=== PATIENT | male | born 1930 ===

== ENCOUNTER → 2017-04-22 09:32 | Day surgery (SDC) | payer MEDICARE, BC ==
--- NOTE | 2017-04-18 21:27 | HP ---
CC: Dr. Bulmaro Fried; Dr. Ganesh Ling* ADMITTING HISTORY AND PHYSICAL: DATE OF ADMISSION: 04/22/17 ADMITTING DIAGNOSES: 1. Microscopic hematuria. 2. Left renal calculus. PLANNED PROCEDURE: Shock wave lithotripsy, left renal calculus, possible left stent insertion. SURGEON: Dr. Ling. HISTORY OF PRESENT ILLNESS: Cristopher Manrique is an 86-year-old gentleman with a history of recurrent renal calculi. He had undergone lithotripsy in 2015 for a left-sided calculus. A followup ultrasound in September of 2016 showed no remaining calculi in the left kidney; however, further ultrasound done in March showed a new calculus in the inferior aspect of the left renal pelvis measuring 9.6 mm. He is now being brought in for the management of the same. PAST MEDICAL HISTORY: Significant for renal calculi. PAST SURGICAL HISTORY: Unremarkable. MEDICATIONS ON ADMISSION: None. ALLERGIES: No known drug allergies. SMOKING HISTORY: He is a nonsmoker. REVIEW OF SYSTEMS: He is in remarkably good health. There is no history of diabetes mellitus or any other major systemic illness. He is not on any chronic medications. PHYSICAL EXAMINATION GENERAL: Reveals a healthy-appearing elderly gentleman. VITAL SIGNS: Blood pressure is 120/70; pulse 80 per minute, regular; temperature 97.5; oxygen saturation 98% on room air. LUNGS: Clear bilaterally. CARDIOVASCULAR: Regular rate and rhythm. S1, S2. ABDOMEN: Soft without masses. IMPRESSION AND PLAN: An 86-year-old gentleman with approximately 9-mm calculus in the inferior aspect of the left renal pelvis. Planned procedure is shock wave lithotripsy, left renal calculus, possible left stent insertion. [id number]/[facility] #: [id number] [facility]
[~2017-04-22 09:32] MED LIST: Buffered Lidocaine 0.9% SYRIN* 5 ML/SYR SYRINGE INTRADERM ONE; Buffered Lidocaine 0.9% SYRIN* 5 ML/SYR SYRINGE ONE; Dexamethasone IV* 4 MG/ML 1 ML (4 MG) IV SLOW PU ONE; Dexamethasone IV* 4 MG/ML 1 ML (4 MG) ONE; Famotidine IV* 10 MG/ML 2 ML (20 mg) IV ONE; Famotidine IV* 10 MG/ML 2 ML (20 mg) ONE; Lidocaine 2% PF * 5 ML VIAL ONE; Ondansetron INJ* 2 MG/ML VIAL ONE; Phenylephrine IV* 40 MCG/ML 10 ML SYRINGE ONE; Propofol* 10 MG/ML 20 ML BTL IV PUSH ONE; cefTRIAXone(*) 2 GM ADDV.VIAL IVPB ONE; fentaNYL* 50 MCG/ML 2 ML VIAL (100 MCG VIAL) IV PRN; fentaNYL* 50 MCG/ML 2 ML VIAL (100 MCG VIAL) ONE
--- NOTE | 2017-04-22 10:34 | RAD ---
HISTORY: Renal calculi, shock wave lithotripsy COMPARISONS: April 10, 2017 VIEWS: Frontal views of the abdomen. FINDINGS: BOWEL: There is a nonspecific bowel gas pattern, with nondilated small bowel gas noted. CALCULI: Again noted is a 0.8 cm calculus overlying the left renal parenchymal shadow. BONES AND SOFT TISSUES: Degenerative changes are noted. OTHER FINDINGS: The lung bases are clear. There is no subphrenic gas. IMPRESSION: STABLE LEFT NEPHROLITHIASIS
[2017-04-22 12:51] VITALS: BP 136/76
--- NOTE | 2017-04-22 13:43 | RAD ---
HISTORY: Postop left shock wave lithotripsy COMPARISONS: April 22, 2017 at 9:55 AM VIEWS: Frontal views of the abdomen. FINDINGS: BOWEL: There is a nonspecific bowel gas pattern, with nondilated small bowel gas noted. There is a large amount of stool within the colon. CALCULI: The left renal calculus noted on the previous examination is not clearly visualized on the current examination. BONES AND SOFT TISSUES: Degenerative changes noted of the spine OTHER FINDINGS: The lung bases are clear. There is no subphrenic gas. IMPRESSION: THE LEFT RENAL CALCULUS NOTED EARLIER IS NOT WELL-VISUALIZED ON THE CURRENT EXAMINATION.
--- NOTE | 2017-04-23 03:02 | OP ---
CC: Dr. Bulmaro Fried; Dr. Ganesh Ling* OPERATIVE REPORT: DATE OF OPERATION: 04/22/17 - SDS DATE OF : 34 SURGEON: Ganesh Ling MD ANESTHESIOLOGIST: Dr. Resendiz. ANESTHESIA: General. PRE-OP DIAGNOSIS: Left renal calculus. POST-OP DIAGNOSIS: Left renal calculus. OPERATIVE PROCEDURE: Shockwave lithotripsy of left renal calculus. INDICATIONS: Cristopher Manrique is an 86-year-old gentleman with a history of recurrent renal calculi. He was recently evaluated and noted to have a 9.3 cm calculus in the left renal pelvis. He is now being brought in for shockwave lithotripsy and possible left stent insertion. COMPLICATIONS: None. POSTOPERATIVE CONDITION: Stable. DESCRIPTION OF PROCEDURE: After induction of general anesthesia, the patient was placed on the lithotripsy table in supine position. The calculus in the left kidney was localized using fluoroscopy. Shockwave lithotripsy was commenced at a rate of 60 shocks per minute. After the initial 300 shocks, there was a pause in lithotripsy for several minutes in an effort to minimize any potential trauma to the kidney. Lithotripsy was then resumed. Periodic imaging revealed good localization. The stone was noted to be fairly dense and hard and a total of 2800 shocks were administered. I elected not to proceed with stent insertion as the stone did appear to be fragmented at the end of the procedure, although it is certainly possible that he could develop obstructing fragments, which may require delayed stent insertion. I had discussed this preoperatively with him and he had wanted to try and avoid stent insertion at the present time if at all possible. The patient tolerated the procedure satisfactorily and was transferred back to the recovery area in stable condition. [id number]/[facility] #: [id number] MTDD
== END | disposition home or self-care (01) ==
LOC: OR 09:32
PROVIDERS: ATTEND Urology
DX: N20.0 Calculus of kidney (principal)
CPT/HCPCS: 74000; J0696; J1100; J2405; J2704; J3010

== ENCOUNTER 2017-11-28 18:25 | Emergency (ER) | payer MEDICARE, BC ==
[2017-11-28 18:53] VITALS: BP 119/66
--- NOTE | 2017-11-28 19:10 | UC ---
Eye Complaint HPI - HPI Summary HPI Summary: 87 yo male presents with left eye injury. He tells me that about 1 hour [employer] he was cutting his grass and a twig poked him in the left eye. Had immediate pain and soon after started to develop blood in the white parts of his eye. Mild- moderate pain rated at a 5. Takes a daily aspirin. No vision changes. - History of Current Complaint Chief Complaint: UCEye Stated Complaint: EYE COMPLAINT Time Seen by Provider: 11/28/17 19:10 Hx Obtained From: Patient Onset/Duration: Sudden Onset Timing: Constant Severity Initially: Moderate Severity Currently: Moderate Pain Intensity: 5 Pain Scale Used: 0-10 Numeric Location of Injury: Globe, Sclera Character: Dull Aggravating Factor(s): Nothing Alleviating Factor(s): Nothing - Allergies/Home Medications Allergies/Adverse Reactions: Allergies Allergy/AdvReac Type Severity Reaction Status Date / Time No Known Allergies Allergy Verified 11/28/17 18:53 Home Medications: Home Medications Aspirin [Aspirin Childrens 81 MG] 81 mg PO DAILY 11/28/17 [History Confirmed ] PMH/Surg Hx/FS Hx/Imm Hx - Additional Past Medical History Additional PMH: None Previously Healthy: Yes - Surgical History Surgical History: Yes Surgery Procedure, Year, and Place: LYMPH NODE DISECTION, 1973. LEFT STENT [facility] [place] - Family History Known Family History: Positive: None - Social History Occupation: Retired Lives: With Family Alcohol Use: Rare Alcohol Amount: 1 PER WEEK Substance Use Type: None Smoking Status (MU): Never Smoked Tobacco Have You Smoked in the Last Year: No Review of Systems Constitutional: Negative Skin: Negative Eyes: Other - Hematoma left eye ENT: Negative Respiratory: Negative Cardiovascular: Negative Neurological: Negative Psychological: Negative All Other Systems Reviewed And Are Negative: Yes Physical Exam - Summary Physical Exam Summary: GENERAL: NAD. WDWN. No pain distress. SKIN: No streaking, bleeding, or drainage. HEENT: Head: AT/NC Eyes: EOMI. PERRLA. LEFT eye: Moderate to severe subconjunctival hemorrhage. No white sclera appreciated. No hyphema. No drainage. NECK: Supple. Nontender. No lymphadenopathy. CHEST: No accessory muscle use. Breathing comfortably and in no distress. CV: RRR. Without m/r/g. NEURO: Alert. CN II-XII grossly intact. PSYCH: Age appropriate behavior. Triage Information Reviewed: Yes Vital Signs: Initial Vital Signs Temp 97.8 F 11/28/17 18:49 Pulse 62 11/28/17 18:49 Resp 20 11/28/17 18:49 BP 119/66 11/28/17 18:49 Pulse Ox 98 11/28/17 18:49 Eye Complaint Course/Dx - Course Course Of Treatment: Pt is a pt of Dr. Freitas. I called his office and they were still open this evening and will see the pt now. - Differential Dx/Diagnosis Provider Diagnoses: Left eye trauma Discharge - Sign-Out/Discharge Documenting (check all that apply): Discharge/Admit/Transfer - Discharge Plan Condition: Stable Disposition: HOME Referrals: Bulmaro Fried DO [Primary Care Provider] - Additional Instructions: If you develop a fever, shortness of breath, chest pain, new or worsening symptoms - please call your PCP or go to the ED. Dr. Freitas will see you now. Please go there. - Billing Disposition and Condition Condition: STABLE Disposition: HOME
[2017-11-28] MEDS ORDERED: Fluorescein Sod TOPICAL 0.6* 0.6 MG TEST OPHTHALMIC ONE (19:26)
== END 2017-11-28 19:35 | disposition home or self-care (01) ==
LOC: UCEAST 18:25
DX: S05.92XA Unspecified injury of left eye and orbit, initial encounter (principal); W22.8XXA Striking against or struck by other objects, initial encounter; Y93.H2 Activity, gardening and landscaping; Y92.017 Garden or yard in single-family (private) house as the place of occurrence of the external cause; Z79.82 Long term (current) use of aspirin
CPT/HCPCS: 99201; G0463

== ENCOUNTER 2018-06-14 15:31 | Observation (INO) | payer MEDICARE, BC, OTHER ==
[2018-06-14] MEDS ORDERED: NS 0.9% 1000 ML* 1,000 ML IV ONE (15:50)
[2018-06-14 16:06] LABS: ABS Basophils 0.1 10^3/ul (0-0.2); ABS Eosinophils 0.2 10^3/ul (0-0.6); ABS Lymphocytes 1.7 10^3/ul (1.0-4.8); ABS Monocytes 0.7 10^3/ul (0-0.8); ABS Neutrophils 4.7 10^3/ul (1.5-7.7); ABS Nucleated RBC 0 10^3/ul; Eosinophil % 2.5 %; Hematocrit 41 % (42-52); Hemoglobin 13.7 g/dl (14.0-18.0); Mean Corpuscular HGB Conc 34 g/dl (31-36); Mean Corpuscular Hemoglobin 32 pg (27-31); Mean Corpuscular Volume 95 fL (80-94); Nucleated Red Blood Cells % 0; Platelet Count 199 10^3/ul (150-450); Red Blood Count 4.27 10^6/ul (4.00-5.40); Red Cell Distribution Width 12 % (10.5-15); White Blood Count 7.3 10^3/ul (3.5-10.8)
[2018-06-14 16:23] LABS: ALT 17 U/L (7-52); AST 20 U/L (13-39); Albumin 4.2 g/dL (3.2-5.2); Albumin/Globulin Ratio 1.9 (1-3); Alkaline Phosphatase 84 U/L (34-104); Anion Gap 6 mmol/L (2-11); BUN/Creatinine Ratio 15.4 (8-20); Blood Urea Nitrogen 18 mg/dL (6-24); C Reactive Protein 1.11 mg/L (<8.01); CO2 Carbon Dioxide 27 mmol/L (22-32); Calcium 9.4 mg/dL (8.6-10.3); Chloride 106 mmol/L (101-111); EGFR African American 71.7 (>60); EGFR Non-African American 59.2 (>60); Globulin 2.2 g/dL (2-4); Glucose 185 mg/dL (70-100); Potassium 3.9 mmol/L (3.5-5.0); Sodium 139 mmol/L (135-145); Total Protein 6.4 g/dL (6.4-8.9)
[2018-06-14 16:24] LABS: Troponin I 0.01 ng/mL (<0.04)
[2018-06-14 16:45] LABS: Alcohol < 10 mg/dL (<10)
[2018-06-14 17:08] LABS: TSH (Thyroid Stimulating Horm) 2.12 mcIU/mL (0.34-5.60)
--- NOTE | 2018-06-14 17:10 | ED ---
Neurological HPI - HPI Summary HPI Summary: A 87 y/o male accompanied by his brought in by ambulance presents to the ED c/o dizziness. Currently, the patient feels back to baseline and has no complaints. Patient has no pain whatsoever and feels perfectly fine. In the ED room, the patient has a pulse of 73 BPM, O2 saturation of 96%, and blood pressure of 110/62. According to the patient, he was singing [employer] when he started to feel dizzy. At that point, he had only been singing VTM for about an hour starting at 1415, however, at approximately 1515, he felt hot , diaphoretic, nauseous, and became dizzy. He noted that the dizziness passed off after about 15-20 minutes. He wasn't going to come seek medical attention, however, his friends and family convinced him to do so. He characterized the dizziness as "foggy" (not room-spinning) and nauseous, as if he felt like he was going to faint and pass out. He knew that he needed to sit down. He put his head in between his legs, but he still felt dizzy so he laid down and all of his symptoms went away. He denies any SOB, hematuria, CP or chest discomfort, weakness, headache, leg pain, abdominal pain, palpitations or irregular beats. He noted that he stopped singing as soon as he felt dizzy. As per , the patient was "white as a sheep", but after some time he started making jokes and was back to his normal self. She didn't notice any garbled speech and the patient didn't notice any trouble finding words. His feels that the patient is his usual self and looks good now. Pt states the he raked leaves for 2 hrs today prior to going [email or web address]. He states that he did not have chest pain during or after the raking. He also states that he rested after raking. Current medications are Aspirin 81 mg. Pt has no cardiac hx, no hx HTN or DM. States he has not had a stress test. PCP is Dr. Fried. Home Medications Medication Instructions Recorded Confirmed Type Aspirin [Aspirin Childrens 81 MG] 81 mg PO DAILY 11/28/17 11/28/17 History - History of Current Complaint Chief Complaint: EDDizziness Stated Complaint: NEAR SYNCOPE Time Seen by Provider: 06/14/18 16:12 Hx Obtained From: Patient, Family/Control Systems Technician - Onset/Duration: Sudden Onset, Started hours ago, Resolved Timing: Sudden Onset Onset Severity: Severe Current Severity: None Number of Seizures: 0 Pain Intensity: 0 Pain Scale Used: 0-10 Numeric Character: Dizzy Syncope Timin Number of Episodes: 0 Aggravating: Nothing Alleviating: Nothing Associated Signs and Symptoms: Positive: Dizziness, Nausea/Vomiting - Nausea, Diaphoresis TPA Considered: No Related Hx: ASA - Allergy/Home Medications Allergies/Adverse Reactions: Allergies Allergy/AdvReac Type Severity Reaction Status Date / Time No Known Allergies Allergy Verified 11/28/17 18:53 PMH/Surg Hx/FS Hx/Imm Hx Previously Healthy: No Endocrine/Hematology History: Reports: Other Endocrine/Hematological Disorders - Sarcoidosis Cardiovascular History: Denies: Other Cardiovascular Problems/Disorders Respiratory History: Reports: Other Respiratory Problems/Disorders - HX SARCOIDOSIS-1973, NO SYMPTOMS NOW GI History: Reports: Hx Jaundice - YELLOW JAUNDICE AT AGE 20 Denies: Other GI Disorders History: Reports: Hx Kidney Stones - s/p lithotripsy Sensory History: Reports: Hx Cataracts - LEFT EYE, Hx Contacts or Glasses - READING Denies: Hx Hearing Aid Opthamlomology History: Reports: Hx Cataracts - LEFT EYE, Hx Contacts or Glasses - READING Neurological History: Reports: Hx Migraine - INFREQUENT-TREATS WITH REST - Surgical History Surgery Procedure, Year, and Place: LYMPH NODE DISSECTION, 1973. LEFT renal STENT 01/13 [facility] [place]. Lithotripsy Hx Anesthesia Reactions: No Infectious Disease History: No Infectious Disease History: Denies: Traveled Outside the [place] in Last 30 Days - Family History Known Family History: Positive: Other - FHx of CVA and SD. - Social History Lives: With Family Alcohol Use: Rare Alcohol Amount: 1 PER WEEK Substance Use Type: Reports: None Smoking Status (MU): Never Smoked Tobacco Have You Smoked in the Last Year: No Review of Systems Positive: Skin Diaphoresis. Negative: Fever Cardiovascular: Other - NEGATIVE: IRREGULAR BEATS Negative: Palpitations, Chest Pain Negative: Shortness Of Breath Positive: Nausea Negative: hematuria Positive: Other - NEGATIVE: LEG PAIN Skin: Negative Neurological: Other - POSITIVE: Dizziness Negative: Headache, Weakness, Slurred Speech Psychological: Normal All Other Systems Reviewed And Are Negative: Yes Physical Exam - Summary Physical Exam Summary: Appearance: Well-appearing, no pain distress, well-nourished, appears younger than stated age, occasional PAC's and unifocal PVC's noted on monitor Skin: Warm, color reflects adequate perfusion, dry Head: Normal Head/Face inspection, atraumatic Eyes: Conjunctiva clear, PERRL, EOMI ENT: Normal inspection Neck: Supple, no nodes, no JVD, no bruits Respiratory: Lungs clear, normal breath sounds, no respiratory distress Cardio: RRR, No murmur, pulses normal, brisk capillary refill Abdomen: Soft, nontender Bowel sounds: Present Musculoskeletal: Strength Intact/ROM intact, no calf tenderness, no edema. Psychological: Normal Neuro: Alert O x 3, CN II-XII intact, muscle tone normal, no focal deficit, Motor 5/5, Sensation intact, nl FTN and heel to messina Triage Information Reviewed: Yes Vital Signs On Initial Exam: Initial Vitals Temp Pulse Resp BP Pulse Ox 97.4 F 65 16 125/57 98 06/14/18 15:34 06/14/18 15:34 06/14/18 15:34 06/14/18 15:34 06/14/18 15:34 Vital Signs Reviewed: Yes - Timur Coma Scale Best Eye Response: 4 - Spontaneous Best Motor Response: 6 - Obeys Commands Best Verbal Response: 5 - Oriented Coma Scale Total: 15 Diagnostics - Vital Signs Vital Signs Temp Pulse Resp BP Pulse Ox 06/14/18 16:05 70 21 110/62 98 06/14/18 16:00 63 17 98 06/14/18 15:34 97.4 F 65 16 125/57 98 - Laboratory Lab Results: Lab Results 06/14/18 06/14/18 06/14/18 Range/Units 15:58 15:58 15:58 WBC 7.3 (3.5-10.8) 10^3/ul RBC 4.27 (4.00-5.40) 10^6/ul Hgb 13.7 L (14.0-18.0) g/dl Hct 41 L (42-52) % MCV 95 H (80-94) fL MCH 32 H (27-31) pg MCHC 34 (31-36) g/dl RDW 12 (10.5-15) % Plt Count 199 (150-450) 10^3/ul MPV 8.0 (7.4-10.4) fL Neut % (Auto) 64.1 % Lymph % (Auto) 23.0 % Alger % (Auto) 9.7 % Eos % (Auto) 2.5 % Baso % (Auto) 0.7 % Absolute Neuts (auto) 4.7 (1.5-7.7) 10^3/ul Absolute Lymphs (auto) 1.7 (1.0-4.8) 10^3/ul Absolute Monos (auto) 0.7 (0-0.8) 10^3/ul Absolute Eos (auto) 0.2 (0-0.6) 10^3/ul Absolute Basos (auto) 0.1 (0-0.2) 10^3/ul Absolute Nucleated RBC 0 10^3/ul Nucleated RBC % 0 Sodium 139 (135-145) mmol/L Potassium 3.9 (3.5-5.0) mmol/L Chloride 106 (101-111) mmol/L Carbon Dioxide 27 (22-32) mmol/L Anion Gap 6 (2-11) mmol/L BUN 18 (6-24) mg/dL Creatinine 1.17 (0.67-1.17) mg/dL Est GFR ( Amer) 71.7 (>60) Est GFR (Non-Af Amer) 59.2 (>60) BUN/Creatinine Ratio 15.4 (8-20) Glucose 185 H (70-100) mg/dL Lactic Acid 1.9 (0.5-2.0) mmol/L Calcium 9.4 (8.6-10.3) mg/dL Magnesium 2.0 (1.9-2.7) mg/dL Total Bilirubin 0.60 (0.2-1.0) mg/dL AST 20 (13-39) U/L ALT 17 (7-52) U/L Alkaline Phosphatase 84 (34-104) U/L Troponin I 0.01 (<0.04) ng/mL C-Reactive Protein 1.11 (<8.01) mg/L Total Protein 6.4 (6.4-8.9) g/dL Albumin 4.2 (3.2-5.2) g/dL Globulin 2.2 (2-4) g/dL Albumin/Globulin Ratio 1.9 (1-3) TSH Pending Serum Alcohol < 10 (<10) mg/dL Result Diagrams: 06/14/18 15:58 06/14/18 15:58 Lab Statement: Any lab studies that have been ordered have been reviewed, and results considered in the medical decision making process. - CT BRAIN CT CT Interpretation Completed By: Radiologist Summary of CT Findings: NO ACUTE INTRACRANIAL PATHOLOGY. ED PHYSICIAN REVIEWED THIS RADIOLOGY REPORT. - EKG 1600 Cardiac Rate: NL - 70 BPM EKG Rhythm: Sinus Rhythm - [address] Segment: Non-Specific EKG Comparison: Other - No prior to compare. Discussed EKG with Dr. Astorga who stated that it is not A-fib at 1737, possible Wenkebach or blocked PAC. Summary of EKG Findings: 1st degree AV block, irregular baseline, nl IVCT, nl QTc. 1716 Cardiac Rate: NL - 71 BPM EKG Rhythm: Sinus Rhythm - [address] Segment: Non-Specific Ectopy: None EKG Comparison: No Significant Change - Compared with EKG at 1600 on 06/14/2018 - sinus rhythm. Summary of EKG Findings: 1st degree AV block, nl IVCT, nl QTc, no acute changes. NIH Scale - NIH Scale Level of Consciousness: Alert/Keenly Responsive Ask Patient the Month and His/Her Age: Both Correct Ask Pt to Open/Close Eyes and Cistern Room Operator/Release Non-Paretic Hand: Both Correctly Best Gaze (Only Horizontal Eye Movement): Normal Visual Field Testing: No Visual Loss Facial Paresis-Pt to Smile & Close Eyes or Grimace Symmetry: Normal/Symmetrical Motor Function - Right Arm: No Drift-Holds 10 Seconds Motor Function - Left Arm: No Drift-Holds 10 Seconds Motor Function - Right Leg: No Drift-Holds 10 Seconds Motor Function - Left Leg: No Drift-Holds 10 Seconds Limb Ataxia-Must be out of Proportion to Weakness Present: Absent Sensory (Use Pinprick to Test Arms/Legs/Trunk/Face): Normal Best Language (Describe Picture, Name Items): No Aphasia Dysarthria (Read Several Words): Normal Extinction and Inattention: No Abnormality Total Score: 0 Re-Evaluation - Re-Evaluation First Eval Re-Evaluation Time: 17:42 Change: Unchanged Comment: Patient has no chest pain. Patient agrees with admission. Course/Dx - Course Course Of Treatment: A 87 y/o male presents to the ED c/o dizziness. In the ED room, the patient was at baseline. The patient reported no pain or symptoms and noted that he felt normal upon presentation to the ED. Patients even noted that the patient seemed normal once in the ED. The patient was [place] with a choir, when he suddenly felt dizzy . The patient became diaphoretic and nauseous and he sat down. The symptoms lasted for about 15-20 minutes, however, they were completely resolved after rest and placing his head between his knees.. He characterized the dizziness as foggy and knowing that he needed to sit down. The patient denies any SOB, hematuria, CP or chest discomfort, weakness, headache, leg pain, abdominal pain, palpitations or irregular beats and no trouble with his speech or focal weakness. The patient s and the patient did not notice any slurred speech of any kind. Physical examination was unremarkable. A Brain CT revealed no acute intracranial pathology. An EKG revealed NSR of 70 BPM, 1st degree AV block, irregular baseline, nl IVCT, nl QTc. This EKG was discussed with foreman/pile driving and erection, Dr. Astorga , who thinks it is not A-fib. A second EKG revealed NSR of 71 BPM, 1st degree AV block, nl IVCT, nl QTc, no acute changes. Compared with EKG at 1600 on 2017 - sinus rhythm. Pt was mildly anemic. Nonfasting glucose was elevated. His troponin and d dimer were both normal. In the ED course, the patient received IV fluids. Pt's EKG was discussed with Dr. Astorga. Patient care was discussed with hospitalist, Dr. Nimo Sal, who accepts patient for admission. Patient will be admitted with a diagnosis of near syncope. Patient is agreeable with this plan. - Differential Dx Differential Diagnoses Neuro: Positive: Cerebrovascular Accident, Coronary Artery Disease, Dysrhythmia, Hemorrhage, Hypoglycemia, Hypovolemia, Metabolic Abnormality, Migraine, Pulmonary Embolism, Transient Ischemic Attack, Vasovagal Reaction - Diagnoses Provider Diagnoses: Near syncope - Physician Notifications Discussed Care Of Patient With: Artemio Astorga Time Discussed With Above Provider: 17:34 Instructed by Provider To: Other - EKG was discussed with Dr. Astorga who does not think it is A-fib. 173 - Dr. Sal accepts patient for admission. Discharge - Sign-Out/Discharge Documenting (check all that apply): Patient Departure - ADMIT - Discharge Plan Condition: Stable Disposition: ADMITTED TO [facility] - Billing Disposition and Condition Condition: STABLE Disposition: Admitted to [facility] - Attestation Statements Document Initiated by Halleye: Yes Documenting Scribe: Temo Euceda Provider For Whom Lynn is Documenting (Include Credential): Jerri Madera MD Scribe Attestation: Temo Melchor scribed for Jerri Madera MD on 06/15/18 at 0034. Scribe Documentation Reviewed: Yes Provider Attestation: The documentation as recorded by the Temo ellis accurately reflects the service I personally performed and the decisions made by , Jerri Madera MD Status of Scribe Document: Viewed
[2018-06-14] MEDS ORDERED: Acetaminophen TAB* 325 MG PO PRN (18:23)
[2018-06-14 18:48] LABS: Urine Appearance Cloudy; Urine Bilirubin Negative (Negative); Urine Blood Negative (Negative); Urine Color Yellow; Urine Glucose Negative (Negative); Urine Ketones Negative (Negative); Urine Nitrite Negative (Negative); Urine Protein Negative (Negative); Urine Specific Gravity 1.017 (1.010-1.030); Urine Urobilinogen Negative (Negative)
--- NOTE | 2018-06-14 22:10 | HP ---
CC: Dr. Bulmaro Fried * ADMISSION HISTORY AND PHYSICAL: DATE OF ADMISSION: 06/14/18 PRIMARY CARE PROVIDER: Dr. Bulmaro Fried. ATTENDING PHYSICIAN: Dr. Nimo Sal.* (DICTATED BY JING JOAQUIN NP) CHIEF COMPLAINT: Near syncope. HISTORY OF PRESENT ILLNESS: This is a very pleasant 87-year-old male patient, who was brought in by ambulance for an episode of near syncope. Per the patient 's report, he was standing and singing in a choir for approximately 45 minutes. 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 However, approximately 45 minutes into his choral recital, the patient felt a little sweaty and dizzy and had to sit down. He said the feeling passed in approximately 20 minutes and he was his usual self after the episode. The patient reported he had a little bit of nausea and was concerned that he would pass out; however, once he sat down, he was okay. The patient denied any other accompanying symptoms. He is not short of breath. No chest pain. No fevers or chills. No abdominal pain, no nausea, no vomiting. No urinary complaints. No arthralgias or myalgias and no further constitutional complaints. PAST MEDICAL HISTORY: The patient has no past medical history. PAST SURGICAL HISTORY: He had dissection of a lymph node in 1973 and lithotripsy in the past. MEDICATIONS AT HOME: Include only baby aspirin once daily. FAMILY HISTORY: Bother mother and father of cerebrovascular accident. SOCIAL HISTORY: The patient does not smoke, does not drink alcohol, and denies any illicit drug use. His , Dianna, is his healthcare proxy, who was also available the bedside. REVIEW OF SYSTEMS: A 10-point review of systems is otherwise negative except as noted in the HPI above. PHYSICAL EXAMINATION GENERAL: The patient is a very well appearing, appears to be younger than his stated age white male patient. VITAL SIGNS: Blood pressure 117/64, heart rate 73, respiratory rate 20, O2 saturation is 96%, temperature is 97.4. HEENT: The patient is atraumatic, normocephalic. PERRLA with nonicteric sclerae. Oral mucosa is moist. Tongue is midline. NECK: Supple, nontender. No thyromegaly appreciated and no carotid bruits auscultated. LUNGS: Clear to auscultation with no wheezing, rhonchi, or rales. CARDIOVASCULAR: S1, S2 present. No murmurs, gallops, or rubs noted. Rate and rhythm are regular. ABDOMEN: Soft, nontender, and nondistended. Positive bowel sounds in all 4 quadrants. : Deferred. MUSCULOSKELETAL: There is no clubbing, no cyanosis, no edema. He has +2 distal pulses palpable, full range of motion. Gross motor and sensation are intact. NEUROLOGIC: Grossly intact with no focal deficits. PSYCHIATRIC: He is very cooperative and appropriate. DIAGNOSTIC STUDIES/LAB DATA: WBCs 7.3, RBCs 4.27, hemoglobin 13.7, hematocrit 41, platelets 199. Sodium 139, potassium 3.9, chloride 106, CO2 27, BUN 18, creatinine 1.17, GFR is 59.2, glucose 185, lactic acid 1.9, calcium 9.4, magnesium 2.0. Bilirubin 0.60, AST 20, ALT 17, alk phos 84. Troponin is negative at 0.01. CRP is negative at 0.11. Total protein 16.4, albumin 4.2, globulin 2.2. TSH is 2.12. Serum alcohol on toxicology screen is negative. D- dimer is negative at less than 200. Imaging: CAT scan of the brain shows no acute intracranial pathology. EKG shows regular sinus rhythm with no acute ST-segment changes. IMPRESSION: This is an 87-year-old male patient with no significant medical history that reported to the emergency department for evaluation after feeling like a near syncopal episode after standing and singing for 45 minutes. PLAN: The patient is going to be admitted to observation service for near syncope. At this point, the patient has received a liter of IV fluids in the emergency department. Orthostatic vital signs are pending. Vital signs are stable. His laboratories are stable. I suspect the event was secondary to prolonged standing. The patient states he thinks his knees were locked and he was singing rather and possibly also the room was very very warm and he was sweaty and warm at the same time. Likely, this is not an acute pathologic episode. In either case, we will hold the patient in observation tonight. He can have his baby aspirin in the morning. DIET: Regular as tolerated. ACTIVITY: Out of bed as tolerated. DVT prophylaxis: The patient is alert and ambulatory and even though he is of advanced age, he has absolutely no comorbid conditions and is normally ambulatory. We will encourage ambulation. He does not require chemoprophylaxis for DVT. The rest of the patient's course will be determined by further diagnostics, laboratories, and any other input from other providers as warranted during this admission. TIME SPENT: Approximately 60 minutes interviewing the patient, reviewing the chart, and determining the plan of care. Dr. Sal has reviewed the case as well and is in agreement with this admission plan of care. JING JOAQUIN NP [id number]/[facility] #: [id number] BETHANY
[2018-06-14] MEDS ORDERED: Melatonin 3 MG TAB PO ONE (23:05)
[2018-06-15] MEDS: Aspirin 81 mg CHEW TAB* 81 MG TAB.CHEW PO SCH (08:40)
--- NOTE | 2018-06-15 13:51 | PN ---
Subjective Date of Service: 06/15/18 Interval History: HOSPITALIST PROGRESS NOTE Patient seen and examined at bedside. Care reviewed and d/w Santy Tristan RN. He feels well today and is anxious for discharge as he has many arrangements to make for his upcoming trip to [place]. Family History: Unchanged from Admission Social History: Unchanged from Admission Past Medical History: Unchanged from Admission Objective Active Medications: Acetaminophen (Tylenol Tab*) 650 mg PO Q4H PRN PRN Reason: FEVER/PAIN Aspirin (Aspirin 81 Mg Chew Tab*) 81 mg PO DAILY CATHLEEN Last Admin: 06/15/18 08:40 Dose: 81 mg Vital Signs - 8 hr 06/15/18 06/15/18 06/15/18 07:28 08:00 12:14 Temperature 97.8 F 98.5 F Pulse Rate 65 66 Respiratory 16 16 16 Rate Blood Pressure 120/57 122/61 (mmHg) O2 Sat by Pulse 97 95 Oximetry Oxygen Devices in Use Now: None Appearance: Pleasant erlderly gentleman lying in bed in NAD. Eyes: No Scleral Icterus Ears/Nose/Mouth/Throat: Mucous Membranes Moist Neck: Trachea Midline Respiratory: Symmetrical Chest Expansion and Respiratory Effort, Clear to Auscultation Cardiovascular: RRR - Normal S1 and S2 Neurological: Alert and Oriented x 3, NL Muscle Strength and Tone Result Diagrams: 06/14/18 15:58 06/14/18 15:58 Assess/Plan/Problems-Billing Assessment: Mr Manrique is an 87yo M with NS PMH who presented to ED after a near syncopal episode. - Patient Problems (1) Near syncope Comment: - There was concern for some HB on admission as initial EKG had a pause. - D/w Cardiology - recommended echo and stress test. - Cardio consult requested. - Continue to monitor on Telemetry. (2) DVT prophylaxis Comment: - SCDs. (3) Full code status Status and Disposition: OBV
[2018-06-15 14:34] LABS: Folate > 20.00 ng/mL (>3.99)
[2018-06-15 14:52] LABS: Erythrocyte Sed Rate 8 mm/Hr (0-40)
[2018-06-15] MEDS ORDERED: Melatonin 3 MG TAB PO ONE (20:40)
--- NOTE | 2018-06-15 21:40 | CONS ---
CC: Dr. Fried * CARDIOLOGY CONSULTATION: DATE OF CONSULT: 06/15/18 CONSULTING PHYSICIAN: Dr. Sanford. REASON FOR EVALUATION: Near syncope, abnormal EKG. HISTORY OF PRESENT ILLNESS: This is a very pleasant 87-year-old gentleman who is accompanied by his of 59 years. He is a fairly active gentleman who has no significant past medical history other than a remote diagnosis of sarcoidosis 40 years ago. The patient was in his usual state of health as an active gentleman, usually works in his yard. Yesterday, he felt compelled to rake for a couple hours to get the leaves off the grass before the snow returned. He said he raked them onto liners and lifted them into his truck. He said it was quite vigorous for a couple of hours. He said he also climbed some ladders, went up on his roof. He said he did not eat or drink much during the morning, and in the afternoon, he went to the mall to sing with his jew group. He said he was standing in the choir singing for about 45 minutes with a sweater on. He said it was fairly warm. He noticed he was starting to get warm and lightheaded. He sat down on the chair behind him. He was noted to be pale and sweaty with sweat soaking through his shirt into his sweater. A nurse saw him and apparently asked him to lie down. Within a few minutes of lying down , he felt better, but filler feeder were called and arrived to evaluate him. He denied syncope, although there was some reports that some of the observers thought he had passed out. He said he had no incontinence. Just at beginning, there was some nausea right before he sat down. He denies any diarrhea. No palpitations or chest pain. He was brought to the emergency room and one of his EKGs had poor baseline, but raised the possibility of AFib. In reality, I think it was a poor baseline with sinus rhythm and a dropped beat possibly due to blocked APC or Wenckebach sequence. He has been monitored overnight. His troponins have been negative. He has had no recurrence. He does have occasional APCs, what looks like one Wenckebach episode as well as APCs , possible blocked pac's , and VPCs. He denies fevers, chills, cough, diarrhea, nausea, vomiting, dysuria. PAST MEDICAL HISTORY: Includes nephrolithiasis requiring lithotripsy x3, history of sarcoidosis 40 years ago diagnosed with lymph node biopsy and treated with high- dose steroids. He denies hypertension, diabetes, hyperlipidemia. He has history of tobacco use when he was in high school, but none since. PAST SURGICAL HISTORY: Includes the lymph node resection and lithotripsy. MEDICATIONS: As an outpatient include aspirin 81 mg a day. As an inpatient, he is on the same. ALLERGIES: He denies any drug allergies. 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 He is , accompanied by his of 15 years. He states he has alcohol about once a month. He has about 1 cup of caffeinated coffee a day and did have one on the day of the event. FAMILY HISTORY: He has 2 adult children. He is 1 of 4 siblings. He had 2 sisters, one who with scleroderma and one who with Sjogren's and cancer. He had a brother who of alcoholism. PHYSICAL EXAM: On physical exam, he is a well-developed, well-nourished gentleman, appearing younger than his stated age, no apparent distress. Temperature 98.5, blood pressure 122/61, O2 sat is 95% on room air. Carotids 2 + without bruits. No cervical adenopathy. No thyromegaly. No JVD. Cardiac Exam: S1, S2 with a 2/6 systolic ejection murmur at the left sternal border. Chest was clear. No CVAT. Abdomen: Bowel sounds present. Nontender. No hepatosplenomegaly. Femoral pulses intact without bruits. Distal pulses intact. No edema. Motor strength 5/5 bilaterally. Deep tendon reflexes 2/4. Alert and oriented x3. Skin turgor normal and negative Homans sign. DIAGNOSTIC STUDIES/LAB DATA: Laboratories include borderline anemia with hematocrit of 41, hemoglobin of 13.7, white count of 7.3, platelet count of 199. Potassium was 3.9 yesterday, BUN 18, creatinine of 1.17 and lactic acid 1.9. Troponin of 0.01 and second of 0. TSH was normal. Urine was somewhat concentrated with 1.017 specific gravity, otherwise negative. Alcohol level is less than 10. D- dimer is less than 200. His EKG from today revealed sinus rhythm with first degree AV block and frequent PVCs. EKG on 06/14/18 at 1739 revealed what appeared to be some J point elevation in V2 through V6 raising possibility of pericarditis and first degree AV block. His EKG from 1600 revealed poor baseline, probable sinus rhythm , again with early repolarization, ST elevation anterolaterally and a possible Wenckebach sequence, although it is difficult to say for sure. IMPRESSION: My impression is that Mr. Manrique had an episode of diaphoresis and lightheadedness of unclear etiology. Given his probable dehydration and prolonged standing in a hot environment, this may have been a vagal reaction; however, he does have a murmur on exam, he has some nonspecific ST changes and some PVCs. I suggest we consider the possibility of a cardiac component given his age and risk factors and the nonspecific findings of the PVCs, APCs, first degree AV block, type 1 second degree AV block, and nonspecific ST changes and the murmur on exam. For the time being, I have recommended the followin. I would suggest an echo. We will evaluate for LV dysfunction and pericarditis and valvular disease. 2. He is to have a stress nuclear to evaluate for ischemic heart disease. 3. We would consider an outpatient event monitor with implantable loop monitor if he continues to have symptoms of dizziness that are unexplained. 4. We would try to maintain his potassium over 4. 5. We will check a sed rate, CRP. 6. We will check a B12 level and folic acid given his elevated MCV. 7. He is told to avoid dehydration and caffeine use. Further recommendations will depend on his clinical course. [id number]/[facility] #: [id number] BETHANY
[2018-06-16 09:33] VITALS: BP 150/80
[2018-06-16] MEDS: Aspirin 81 mg CHEW TAB* 81 MG TAB.CHEW PO SCH (09:41)
--- NOTE | 2018-06-16 13:04 | ECHO ---
Amended Report Patient: MAYRA PERDUE [facility] Rec#: [id number] : 1930 Date: 06/16/2018 Age: 87y Height: 185 cm / 72.8 in Weight: 86.3 kg / 190.2 lbs Sex: M BSA: 2.1 Room#: [facility] Admit Date#: 06/14/2018 Type: Inpatient Referring: Artemio Astorga MD Reading: Yosef Marquez MD Wedger Machine: Sera Dia RN RDCS CC: Fariha ZAMORANO,Bulmaro Transthoracic Echocardiogram Indication: Syncope, murmur, abnormal EKG BP: 125/69 HR: 73 Rhythm: NSR with PVCs Findings History: Remote diagnosis of sarcoidosis 40 years ago Technical Comments: The study quality is fair. Left Ventricle: The left ventricular chamber size is normal. Mild concentric left ventricular hypertrophy is observed. There is increased basal septal hypertrophy noted without evidence of an increased gradient across the left ventricular outflow tract. Global left ventricular wall motion and contractility are within normal limits. There is normal left ventricular systolic function. The estimated ejection fraction is 55-60%. There is no consistent Doppler evidence of clinically significant diastolic dysfunction. Left Atrium: The left atrial chamber size is normal. Right Ventricle: The right ventricular cavity size is normal. The right ventricular global systolic function is normal. Right Atrium: The right atrium is slightly dilated. There is evidence of an atrial septal aneurysm. Aortic Valve: The aortic valve is trileaflet. The aortic valve leaflets are mildly thickened. There is a trace of aortic regurgitation. There is no evidence of aortic stenosis. Mitral Valve: The mitral valve leaflets are mildly thickened. There is trace to mild mitral regurgitation. There is no evidence of mitral stenosis. Tricuspid Valve: The tricuspid valve leaflets are normal. There is trace tricuspid regurgitation. No pulmonary hypertension is noted. There is no tricuspid stenosis. Pulmonic Valve: The pulmonic valve appears normal. There is a trace pulmonic regurgitation. There is no pulmonic stenosis. Pericardium: There is no significant pericardial effusion. Aorta: There is no dilatation of the ascending aorta. There is no dilatation of the aortic arch. There is mild dilatation of the aortic root. Pulmonary Artery: The main pulmonary artery is not well visualized. Venous: The venous system is not well visualized. The inferior vena cava is not visualized. Conclusions Global left ventricular wall motion and contractility are within normal limits. There is normal left ventricular systolic function. The estimated ejection fraction is 55-60%. The right ventricular global systolic function is normal. There is a trace of aortic regurgitation. There is trace to mild mitral regurgitation. There is trace tricuspid regurgitation. No pulmonary hypertension is noted. There is no significant pericardial effusion. Measurements Name Value Normal Range RVIDd (AP) 2D 2.9 cm (0.9 - 2.6) RVDdMajor (2D) 3.5 cm (2.2 - 4.4) RAd ISD 4CH 5.1 cm (3.4 - 4.9) RA (A4C)W 3.6 cm (2.9 - 4.6) IVSd (2D) 1.1 cm (0.6 - 1) LVPWd (2D) 1.1 cm (0.6 - 1) LVIDd (2D) 4 cm (3.6 - 5.4) LVIDs (2D) 2.8 cm - LV FS (2D) 25 % (25 - 45) Aortic Annulus 2.5 cm (1.4 - 2.6) Ao root diameter (2D) 3.8 cm (2.1 - 3.5) Ascending Ao 3.4 cm (2.1 - 3.4) Aortic arch 2.6 cm (1.8 - 3.4) LA dimension (AP) 2D 2.7 cm (2.3 - 3.8) LAd ISD 4CH 5 cm (2.9 - 5.3) LA ISD 4CH W 4.2 cm (2.5 - 4.5) Name Value Normal Range LA ESV BP (A/L) index 23.2 ml/m2 - Name Value Normal Range MV E-wave Vmax 0.64 m/sec - MV deceleration time 338 msec - MV A-wave Vmax 0.89 m/sec - MV E:A ratio 0.7 ratio - LV septal e' Vmax 0.05 m/sec - LV lateral e' Vmax 0.09 m/sec - LV E:e' septal ratio 12.8 ratio - LV E:e' lateral ratio 7.1 ratio - Name Value Normal Range AV Vmax 1.2 m/sec - AV VTI 26 cm - AV peak gradient 5 mmHg - AV mean gradient 3 mmHg - LVOT Vmax 1 m/sec - LVOT VTI 19.9 cm - LVOT peak gradient 4 mmHg - LVOT mean gradient 2 mmHg - TRAVIS Vmax 0.5 m/sec - Name Value Normal Range TR Vmax 2.3 m/sec - TR peak gradient 21 mmHg - RAP 8 mmHg - RVSP 29 mmHg - Name Value Normal Range PV Vmax 0.96 m/sec -
--- NOTE | 2018-06-16 15:01 | DS ---
CC: Dr. Bulmaro Fried; Dr. Astorga; Dr. Marquez DATE OF ADMISSION: 06/14/2018. DATE OF DISCHARGE: 06/16/2018. DISCHARGE DIAGNOSIS: Near syncope, likely secondary to dehydration. SECONDARY DIAGNOSES: Remote history of nephrolithiasis with lithotripsy; remote history of sarcoidos is 40 years ago. MEDICATION LIST: Aspirin 81 mg p.o. daily. HOSPITAL COURSE: Mr. Manrique is an 87-year-old male with no significant past medical history who pre sented to the emergency room after a near syncopal episode. On the day of admission, the patient was very active with actually raking his yard for a couple hours and did not drink a lot of fluids. When he finished raking the leaves for a couple hours, he also went to work on his roof. As stated above , he did not drink a lot of fluids. He went to sing with his sabianism group and he states that the margarita ce was fairly warm when he noticed that he was feeling flushed and lightheaded. He sat down on the c hair, became pale, sweaty and was brought in to the emergency room for further evaluation. There was no complaint of nausea, vomiting, chest pain, or palpitations. His initial EKG in the emergency room had poor baseline with sinus rhythm and a dropped beat, possibl y due to a blocked APC or Wenckebach sequence. The patient was admitted to the medical floor for fur ther evaluation. He underwent an exercise nuclear stress test that was negative for ischemia or infarct and a transtho racic echocardiogram that showed an ejection fraction of 55 to 60 percent with normal wall motion con tractility and no significant valvular disease. The patient was seen in consultation by Cardiology (Dr. Astorga) who had suggested the above mentioned tests and he also recommended considering outpatient event monitor with implantable loop monitor if the patient continues to have symptoms. Unrelated to his symptoms, the patient was also found to have mild macrocytosis and his folate is normal and his vitamin B12 is on the low normal side at 233. Th e patient is reluctant to take any new medications and he is anxious to follow through his plans to a trip to [place], but I think he would benefit with some supplementation or at least monitoring of hi s level to make sure that it does not get any lower than they are at this time. The patient is medically stable for discharge at this time. He will follow-up with Dr. Fried and dana marcella was advised that if he has other episodes, he should go to the nearest ER. He plans to follow-up w lan Marquez to make arrangements for the outpatient event monitor. PHYSICAL EXAMINATION: General: The patient is a pleasant, elderly gentleman, lying in bed in no acu te distress. Vital Signs: Temperature 98.2, heart rate 69, respiratory rate 16, oxygen saturation 9 7 percent on room air, blood pressure 150/80. CVS: Normal S1, S2. Regular rate and rhythm. Chest: Breath sounds bilaterally with no added sounds. Neuro: He is alert and oriented times three, able to move all four extremities. DIET: Regular diet. ACTIVITY: As tolerated. DISPOSITION: To home. STATUS WHILE IN THE HOSPITAL: Observation. Please keep in mind this is a summarized version of this patient's hospital stay. If you need more in formation, please feel free to call me at or please obtain full medical records. Approximately 45 minutes were spent to complete this discharge. [id number]/[facility] #: [id number]
== END 2018-06-16 14:32 | disposition home or self-care (01) ==
LOC: ED 15:31 → MEDTELE 18:23
PROVIDERS: ADMIT Internal Medicine; ATTEND Internal Medicine
DX: R55 Syncope and collapse (principal); R42 Dizziness and giddiness; R11.2 Nausea with vomiting, unspecified; Z87.442 Personal history of urinary calculi; Z79.82 Long term (current) use of aspirin; Z87.09 Personal history of other diseases of the respiratory system
CPT/HCPCS: 36415; 70450; 78452; 80053; 80320; 81003; 82607; 82746; 83605; 83735; 84443; 84484; 85025; 85379; 85652; 86140; 93005; 93017; 93306; 99285; A9270-GY; A9502; G0378; G0480